=== PATIENT | male | born 1975 | race Caucasian/White ===

== ENCOUNTER 2016-05-18 10:23 | Emergency (ER) | payer OTHER ==
--- NOTE | 2016-05-18 11:43 | DIAGNOSTIC IMAGING REPORT ---
PROCEDURE: XR ANKLE 3 OR 4 VIEWS - RIGHT INDICATION: TRAUMA/INJURY TECHNIQUE: Four views. COMPARISON: Right ankle films 10/12/2008 FINDINGS: New lateral malleolar fracture. There is minimal displacement. The ankle mortise remains anatomic. IMPRESSION: 1. New lateral malleolar fracture.
--- NOTE | 2016-05-18 11:58 | DIAGNOSTIC IMAGING REPORT ---
PROCEDURE: XR ANKLE 1 OR 2 VIEWS - RIGHT INDICATION: TRAUMA/INJURY TECHNIQUE: Two views. With gravity COMPARISON: Right ankle films 10:00 a.m. FINDINGS: Slight lateral displacement of the distal lateral malleolar fragment under stress. IMPRESSION: 1. Slight lateral displacement of the distal lateral malleolar fragment under stress.
--- NOTE | 2016-05-18 13:26 | ED NURSING NOTES ---
Clinical Report - Nurses [facility] [address] [place] [address] 05/18/2016 10:29 Patient: PASQUALE COTTRELL TRIAGE Triage time 10:37. Acuity: LEVEL 4. Chief Complaint: INJURY TO RIGHT ANKLE. 10:38 05/18/16. 10:38 05/18/16. --10:40 Fam Boswell R.N. 10:37 05/18/16. BP: 155/88. HR: 82. RR: 14. O2 saturation: 100%. Temp: 98.2 F (oral). --10:40 Fam Boswell R.N. Weight: 68 kg stated. Height/Length: 66 inches Per Patient. BMI: 24.2. --10:38 Fam Boswell R.N. Medications None. --10:39 Fam Boswell R.N. Medication/allergy information source: the patient. --10:40 Fam Boswell R.N. Allergies NKDA. --10:39 Fam Boswell R.N. History Arrived by private vehicle. 10:38 05/18/16. This occurred (Tuesday). Mechanism of injury: sustained a twisting injury. Treatment UNIONMELT OPERATOR: None. PAST MEDICAL HX: Tetanus status: up-to-date. Immunizations not up to date. SOCIAL HX: Current every day heavy tobacco smoker (cigarette)- less than 1 pack per day. Alcohol use; consumes beer daily. History of heavy drug use: marijuana. Recently used drugs yesterday. No infectious disease exposure. FALL RISK ASSESSMENT: Fall risk assessment completed. No fall risk identified. NUTRITIONAL RISK ASSESSMENT: The nutritional risk assessment revealed no deficiencies. FUNCTIONAL ASSESSMENT: Functional assessment: no impairments noted. LEARNING NEEDS ASSESSMENT: The learning needs assessment revealed no barriers. SKIN INTEGRITY ASSESSMENT: Skin integrity risk assessment completed. No skin integrity risk identified. --10:40 Fam Boswell R.N. PROBLEMS: no known problems. ADDITIONAL SURGERIES: Right ankle surgery. --10:40 Fam Boswell R.N. Assessment 10:38 05/18/16. --10:40 Fam Boswell R.N. Interventions 10:38 05/18/16. 10:38 05/18/16. ID and allergy band on patient. To treatment room. --10:40 Fam Boswell R.N. PHYSICAL ASSESSMENT 10:41 05/18/16. GENERAL / NEURO / PSYCH: Oriented X 4. Alert. EXTREMITIES: Extremity pulses are not within normal limits. Capillary refill is less than 2 seconds in the extremities. Neuro-vascular status intact to the extremity. Right ankle: tenderness, swelling, erythema and ecchymosis. SKIN: Skin is warm and dry. --10:41 Fam Boswell R.N. NURSING PROGRESS NOTES 10:41 05/18/16. The plan of care for this patient has been created. Cold pack applied. Patient gowned. Two patient identifiers checked. Call light placed in reach. Side rails up x 2. Bed placed in lowest position. Brakes of bed on. Brakes of chair on. --10:41 Fam Boswell R.N. 10:41 05/18/16. Patient ready for evaluation- chart flagged and notification provided. --10:41 Fam Boswell R.N. 10:56 05/18/16. ( X-ray completed at bedside). --10:56 Fam Boswell R.N. 11:14 05/18/16. ( MD at bedside). --11:14 Fam Boswell R.N. 11:33 05/18/16. --11:33 Fam Boswell R.N. 11:32 05/18/16. BP: 144/78. HR: 76. RR: 12. O2 saturation: 100% on room air. --11:33 Fam Boswell R.N. Stirrup posterior fiberglass lower extremity splint applied to left leg by tech. Distal pulses intact, sensation intact and motor within normal limits. --12:28 Lidia Stokes ( pt. states he has his own crutches at home. Does not want new ones.). --12:30 Lindsey Curry ER Tech1. DISPOSITION / DISCHARGE 13:39 05/18/16. Condition at departure: improved. The goals identified in the patient's plan of care were met. No learning barriers present. Discharge instructions provided and reviewed with the patient. Reviewed warnings. Reviewed medication(s). Treatments reviewed. Reviewed referral to an orthopedic surgeon. Patient verbalized understanding. Written instructions provided in Kosovan. The patient was discharged by the physician. He was discharged home and accompanied by family. He left the Emergency Department ambulatory and via private vehicle. Family member driving. FALL RISK ASSESSMENT: Fall risk assessment completed. No fall risk identified. --13:40 Fam Boswell R.N. 13:39 05/18/16. BP: 112/72. HR: 80. RR: 12. O2 saturation: 99% on room air. Temp: 98.2 F (oral). --13:40 Fam Boswell R.N. 13:40 05/18/16. Departure time: 13:40. --13:40 Fam Boswell R.N. Locked/Released at 05/18/2016 13:46 by Fam Boswell R.N.
--- NOTE | 2016-05-18 13:26 | ED CLINICAL REPORT ---
Clinical Report - Physicians/Mid Levels [facility] [address] [place] [address] 05/18/2016 10:29 Patient: PASQUALE COTTRELL Time Seen: 10:48. Arrived- By private vehicle. Historian- patient. HISTORY OF PRESENT ILLNESS Chief Complaint: Injury to the right ankle. The injury happened several days ago. The patient sustained a twisting injury. Patient is experiencing moderate pain. REVIEW OF SYSTEMS The patient complains of pain on weight bearing. He has had swelling. No tingling, numbness, skin laceration, chills or fever. No sweats, calf pain, chest pain, cough or difficulty breathing. No palpitations, abdominal pain, constipation, diarrhea or nausea. No vomiting or urinary problems. All systems otherwise negative, except as recorded above. SOCIAL HISTORY Current every day heavy tobacco smoker (cigarette)- less than 1 pack per day. Alcohol use; consumes beer daily. History of occasional drug use: marijuana. FAMILY HISTORY No significant family medical history. ADDITIONAL NOTES The nursing notes have been reviewed. PHYSICAL EXAM Vital Signs: 05/18/2016 10:37 BP: 155/88. HR: 82. RR: 14. O2 saturation: 100%. Temp: 98.2 F. Have been reviewed. Appearance: Alert. Head: Head atraumatic. Eyes: Pupils equal, round and reactive to light. ENT: Pharynx normal. Neck: Normal inspection. Neck supple. CVS: Normal heart rate and rhythm. Heart sounds normal. Respiratory: No respiratory distress. Breath sounds normal. Abdomen: No visible injury. Soft and nontender. Bowel sounds normal. No organomegaly. No mass. Back: Normal inspection. No tenderness. ROM normal. No vertebral point tenderness. Skin: Skin intact. Skin warm and dry. Extremities: Right ankle. Gait: Gait not tested due to pain. Neuro, Vascular and Tendons: Vascular status intact. Sensation intact. Neuro: No motor deficit. No sensory deficit. LABS, X-RAYS, AND EKG Rt Ankle X-ray: (IMPRESSION: 1. New lateral malleolar fracture.). Post procedure films: (1. Slight lateral displacement of the distal lateral malleolar fragment under stress.). PROGRESS AND PROCEDURES Splint Application: Posterior stirrup fiberglass splint applied to right ankle. Splint applied by tech. Reassessed extremity following splint application. Neurovascular intact. Consult obtained from orthopedics. Dr. De León. Case discussed. Phone consult only. Will see patient in the office. Patient/family counseled. Old medical records ordered. Disposition: Discharged. Condition: stable. CLINICAL IMPRESSION Fracture of the lateral malleolus of the right fibula. INSTRUCTIONS Apply ice for 20 minutes four times a day until released. Don't apply ice directly to skin and don't use while asleep. Use crutches until released. Wear fiberglass splint until released. Elevate affected areas above chest level. No driving or operating machinery. No weight bearing. Warnings: COMPLICATIONS: Complications from this condition include: possible injury to a nerve, possible injury to a tendon and possible injury to a ligament. Future problems may include loss of function, pain, deformity and poor fracture healing. It is important to follow up with a physician for further evaluation and treatment. GENERAL WARNINGS: Return or contact your physician immediately if your condition worsens or changes unexpectedly, if not improving as expected, or if other problems arise. Prescription Medications: Hydrocodone/APAP 5mg/325mg: take 1 to 2 orally every 6 hours as needed for pain. Dispense fifteen (15). No refills. Understanding of the discharge instructions verbalized by patient. Follow-up with: Chris Pulido M.D., Orthopedic Surgeon, , [facility] [address] [address] Follow up in three days. Call for the next available appointment. (Electronically signed by Sam Acevedo MD 05/28/2016 17:07)
--- NOTE | 2016-05-18 13:26 | ED CLINICAL REPORT ---
Clinical Report - Physicians/Mid Levels [facility] [address] [address] 05/18/2016 10:29 Patient: PASQUALE COTTRELL Time Seen: 10:48. Arrived- By private vehicle. Historian- patient. HISTORY OF PRESENT ILLNESS Chief Complaint: Injury to the right ankle. The injury happened several days ago. The patient sustained a twisting injury. Patient is experiencing moderate pain. REVIEW OF SYSTEMS The patient complains of pain on weight bearing. He has had swelling. No tingling, numbness, skin laceration, chills or fever. No sweats, calf pain, chest pain, cough or difficulty breathing. No palpitations, abdominal pain, constipation, diarrhea or nausea. No vomiting or urinary problems. All systems otherwise negative, except as recorded above. SOCIAL HISTORY Current every day heavy tobacco smoker (cigarette)- less than 1 pack per day. Alcohol use; consumes beer daily. History of occasional drug use: marijuana. FAMILY HISTORY No significant family medical history. ADDITIONAL NOTES The nursing notes have been reviewed. PHYSICAL EXAM Vital Signs: 05/18/2016 10:37 BP: 155/88. HR: 82. RR: 14. O2 saturation: 100%. Temp: 98.2 F. Have been reviewed. Appearance: Alert. Head: Head atraumatic. Eyes: Pupils equal, round and reactive to light. ENT: Pharynx normal. Neck: Normal inspection. Neck supple. CVS: Normal heart rate and rhythm. Heart sounds normal. Respiratory: No respiratory distress. Breath sounds normal. Abdomen: No visible injury. Soft and nontender. Bowel sounds normal. No organomegaly. No mass. Back: Normal inspection. No tenderness. ROM normal. No vertebral point tenderness. Skin: Skin intact. Skin warm and dry. Extremities: Right ankle. Gait: Gait not tested due to pain. Neuro, Vascular and Tendons: Vascular status intact. Sensation intact. Neuro: No motor deficit. No sensory deficit. LABS, X-RAYS, AND EKG Rt Ankle X-ray: (IMPRESSION: 1. New lateral malleolar fracture.). Post procedure films: (1. Slight lateral displacement of the distal lateral malleolar fragment under stress.). PROGRESS AND PROCEDURES Splint Application: Posterior stirrup fiberglass splint applied to right ankle. Splint applied by tech. Reassessed extremity following splint application. Neurovascular intact. Consult obtained from orthopedics. Dr. De León. Case discussed. Phone consult only. Will see patient in the office. Patient/family counseled. Old medical records ordered. Disposition: Discharged. Condition: stable. CLINICAL IMPRESSION Fracture of the lateral malleolus of the right fibula. INSTRUCTIONS Apply ice for 20 minutes four times a day until released. Don't apply ice directly to skin and don't use while asleep. Use crutches until released. Wear fiberglass splint until released. Elevate affected areas above chest level. No driving or operating machinery. No weight bearing. Warnings: COMPLICATIONS: Complications from this condition include: possible injury to a nerve, possible injury to a tendon and possible injury to a ligament. Future problems may include loss of function, pain, deformity and poor fracture healing. It is important to follow up with a physician for further evaluation and treatment. GENERAL WARNINGS: Return or contact your physician immediately if your condition worsens or changes unexpectedly, if not improving as expected, or if other problems arise. Prescription Medications: Hydrocodone/APAP 5mg/325mg: take 1 to 2 orally every 6 hours as needed for pain. Dispense fifteen (15). No refills. Understanding of the discharge instructions verbalized by patient. Follow-up with: Chris Pulido M.D., Orthopedic Surgeon, , [facility] [address] [address] Follow up in three days. Call for the next available appointment. (Electronically signed by Sam Acevedo MD 05/28/2016 17:07)
--- NOTE | 2016-05-18 13:26 | ED ORDER SUMMARY ---
..... Patient: PASQUALE COTTRELL OrderSheet [facility] VisitID: [id number] [place] [address] 41y, M Registration Date/Time: 05/18/2016 ORDER SHEET Weight: 68.0 kg (stated) Allergies: NKDA GENERAL ORDERS: Ankle 3 or 4V Right Urgent (10:41 05/18/2016 Juan David R.N. per protocol) (Ack 10:43 Aldo) (10:56 Juan David R.N.) Ankle 2V Right (gravity stress test) Urgent (11:21 05/18/2016 Petr GUADARRAMA) (Ack 11:34 Aldo) (11:50 NHouse ER Tech1) Splint (LE) (Right) (Long Leg Posterior, Sugar Tong) (Fiberglass) (11:48 05/18/2016 Petr GUADARRAMA) (Ack 11:56 NHouse ER Tech1) (12:14 NHouse ER Tech1) Crutches (11:49 05/18/2016 Petr GUADARRAMA) (Ack 11:56 NHouse ER Tech1) (12:14 NHouse ER Tech1) (Cancelled: Patient [id number] NHouse ER Tech1) MEDICATION ORDERS: IV FLUIDS: ORDER SHEET NOTES: [Electronically signed by Fam Boswell R.N. (13:46 05/18/2016)] [Electronically signed by Sam Acevedo MD (17:07 05/28/2016)] [Electronically locked/signed by Fam Boswell R.N. (13:46 05/18/2016)]
--- NOTE | 2016-05-18 13:26 | ED ORDER SUMMARY ---
..... Patient: PASQUALE COTTRELL OrderSheet [facility] VisitID: [id number] [place] [address] 41y, M Registration Date/Time: 05/18/2016 ORDER SHEET Weight: 68.0 kg (stated) Allergies: NKDA GENERAL ORDERS: Ankle 3 or 4V Right Urgent (10:41 05/18/2016 Juan David R.N. per protocol) (Ack 10:43 Aldo) (10:56 Juan David R.N.) Ankle 2V Right (gravity stress test) Urgent (11:21 05/18/2016 Petr GUADARRAMA) (Ack 11:34 Aldo) (11:50 NHouse ER Tech1) Splint (LE) (Right) (Long Leg Posterior, Sugar Tong) (Fiberglass) (11:48 05/18/2016 Petr GUADARRAMA) (Ack 11:56 NHouse ER Tech1) (12:14 NHouse ER Tech1) Crutches (11:49 05/18/2016 Petr GUADARRAMA) (Ack 11:56 NHouse ER Tech1) (12:14 NHouse ER Tech1) (Cancelled: Patient [id number] NHouse ER Tech1) MEDICATION ORDERS: IV FLUIDS: ORDER SHEET NOTES: [Electronically signed by Fam Boswell R.N. (13:46 05/18/2016)] [Electronically signed by Sam Acevedo MD (17:07 05/28/2016)] [Electronically locked/signed by Fam Boswell R.N. (13:46 05/18/2016)]
--- NOTE | 2016-05-28 17:07 | ED MAR SUMMARY ---
..... Medication Administration Record [facility] [address], [place] [id number] Patient: PASQUALE COTTRELL Chio Visit ID: [id number] 41y, M Weight: 68.0 kg Height/Length: 66 in BMI: 24.2 ALLERGIES: NKDA
--- NOTE | 2016-05-28 17:07 | ED DISCHARGE INSTRUCTIONS ---
Patient: PASQUALE COTTRELL General Instructions [facility] VisitID: [id number] [address] [place] [address] 41y, M Registration Date/Time: 05/18/2016 Fracture of the lateral malleolus of the right fibula. INSTRUCTIONS Apply ice for 20 minutes four times a day until released. Don't apply ice directly to skin and don't use while asleep. Use crutches until released. Wear fiberglass splint until released. Elevate affected areas above chest level. No driving or operating machinery. No weight bearing. Warnings: COMPLICATIONS: Complications from this condition include: possible injury to a nerve, possible injury to a tendon and possible injury to a ligament. Future problems may include loss of function, pain, deformity and poor fracture healing. It is important to follow up with a physician for further evaluation and treatment. GENERAL WARNINGS: Return or contact your physician immediately if your condition worsens or changes unexpectedly, if not improving as expected, or if other problems arise. Prescription Medications: Hydrocodone/APAP 5mg/325mg: take 1 to 2 orally every 6 hours as needed for pain. Dispense fifteen (15). No refills. Understanding of the discharge instructions verbalized by patient. Follow-up with: Chris Pulido M.D., Orthopedic Surgeon, , [address] [place] [address] Follow up in three days. Call for the next available appointment. ADDITIONAL INFORMATION Fracture,Ankle, Distal Fibula You have a fracture (broken bone) of the end of the fibula bone. This is one of two bones that support the ankle joint. Home Care: You will be given a splint, cast or special boot to prevent movement at the site of injury. Do not put weight on a splint; it will break. Follow your doctor's advice regarding when to begin bearing weight on a cast or boot. Keep your leg elevated when sitting or lying down. When sleeping, place a pillow under the injured leg. When sitting, support the injured leg so it is level with your waist. This is very important during the first 48 hours. Keep the cast/splint completely dry at all times. When bathing, protect the cast/splint with a large plastic bag, rubber-banded at the top end. If a fiberglass cast or splint gets wet, you can dry it with a hair-dryer. Place an ice pack (ice cubes in a plastic bag, wrapped in a towel) on the splint/cast over the injured area for 20 minutes every 2 hours during the first day.You can place the ice pack directly over the splint/cast. Continue this 3-4 times a day for the next two days. You may use acetaminophen (Tylenol) or ibuprofen (Motrin, Advil) to control pain, unless another pain medicine was prescribed. [NOTE: If you have chronic liver or kidney disease or ever had a stomach ulcer or GI bleeding, talk with your doctor before using these medicines.] Follow Up with your doctor in one week, or as advised by our staff, to be sure the bone is healing properly. If you were given a splint, it may be changed to a cast after the swelling goes down. [NOTE: A radiologist will review any X-rays that were taken. We will notify you of any new findings that may affect your care.] Get Prompt Medical Attention if any of the following occur: The plaster cast or splint becomes wet or soft The fiberglass cast or splint remains wet for more than 24 hours Increased tightness or pain under the cast or splint Toes become swollen, cold, blue, numb or tingly Crutch Walking Crutch Adjustment Make sure the crutches you use are adjusted to fit you. When you stand, there should be room to fit 2-3 fingers between the top of the crutch and your armpit. Your elbow should be slightly bent when holding the hand liquor department manager. Crutch Walking: Place the crutches forward 12" in front of and 6" to the side of your feet. Lean your weight forward as you push down on the handgrips. Your weight should be on your hands and yourstrong leg, not your armpits . Let your body swing through, landing on the strong leg. Advance the crutches forward again. The crutch and the injured leg should move together. Going Up Steps: ("Up with the good") With both crutches on the same step as your feet, push down on the handgrips. Balancing with very light pressure on the weak leg, let your hands support your weight as you raise your strong leg onto the next higher step. Transfer all your weight to your strong leg (still bent) as you move the crutches up to the next step alongside the strong leg. With your weight evenly balanced on the two crutches and your strong leg, straighten your strong knee as you raise the weak leg up to the next step. Going Down Steps: ("Down with the bad") With both crutches on the same step as your feet, push down on the handgrips. With your weight evenly balanced on the two crutches and your strong leg, bend your strong knee as you lower the weak leg down to the next step. Let your strong leg support you (still bent) as you move the crutches down alongside the weak leg. Transfer your weight to your hands, balancing with very light pressure on the weak leg as you lower your strong leg alongside your weak leg. Splint Care, Fiberglass The following will help you care for your splint: It will take up totwo hours for your fiber glass splint to fully harden; therefore, do notapply any pressure on it during that time or else it may break. To prevent swelling under the splint, for thefirst 48 hours: If the splint is on yourarm, keep it in a sling or raised to shoulder level when sitting or standing; rest it on your chest or on a pillow at your side when lying down. If the splint is on yourfoot, keep it propped up above the level of your waist when sitting or lying. Avoid crutch walking as much as possible during this time. Keep the splint/cast dry at all times. Bathe with your splint/cast well out of the water, protected with a large plastic bag, rubber-banded at the top end. If a fiberglass cast or splint gets wet, you can dry it with a hair-dryer. Follow-up care Follow up with your doctor or this facility as advised. When to seek medical care Get prompt medical attention if any of the following occur: Bad odor from the splint or wound-fluid stains the splint The splint cracks or remains wet over 24 hours Increasing tightness or pressure under the splint Fingers or toes become swollen, cold, blue, numb or tingly Increased pain under the splint Hydrocodone Bitartrate, Acetaminophen Oral tablet What is this medicine? ACETAMINOPHEN; HYDROCODONE (a set a VINCENT lola fen; amilcar droe KOE done) is a pain reliever. It is used to treat mild to moderate pain. How should I use this medicine? Take this medicine by mouth. Swallow it with a full glass of water. Follow the directions on the prescription label. If the medicine upsets your stomach, take the medicine with food or milk. Do not take more than you are told to take. Talk to your wood heel flap trimmer regarding the use of this medicine in children. This medicine is not approved for use in children. What side effects may I notice from receiving this medicine? Side effects that you should report to your doctor or health healthcare insurance sales agent as soon as possible: allergic reactions like skin rash, itching or hives, swelling of the face, lips, or tongue breathing problems confusion feeling faint or lightheaded, falls stomach pain yellowing of the eyes or skin Side effects that usually do not require medical attention (report to your doctor or health healthcare insurance sales agent if they continue or are bothersome): nausea, vomiting stomach upset What may interact with this medicine? alcohol antihistamines isoniazid medicines for depression, anxiety, or psychotic disturbances medicines for sleep muscle relaxants naltrexone narcotic medicines (opiates) for pain phenobarbital ritonavir tramadol What if I miss a dose? If you miss a dose, take it as soon as you can. If it is almost time for your next dose, take only that dose. Do not take double or extra doses. Where should I keep my medicine? Keep out of the reach of children. This medicine can be abused. Keep your medicine in a safe place to protect it from theft. Do not share this medicine with anyone. Selling or giving away this medicine is dangerous and against the law. Store at room temperature between 15 and 30 degrees C (59 and 86 degrees F). Protect from light. Keep container tightly closed. Throw away any unused medicine after the expiration date. Discard unused medicine and used packaging carefully. Pets and children can be harmed if they find used or lost packages. What should I tell my health care provider before I take this medicine? They need to know if you have any of these conditions: brain tumor Crohn's disease, inflammatory bowel disease, or ulcerative colitis drink more than 3 alcohol-containing drinks per day drug abuse or addiction head injury heart or circulation problems kidney disease or problems going to the bathroom liver disease lung disease, asthma, or breathing problems an unusual or allergic reaction to acetaminophen, hydrocodone, other opioid analgesics, other medicines, foods, dyes, or preservatives or trying to get breast-feeding What should I watch for while using this medicine? Tell your doctor or health healthcare insurance sales agent if your pain does not go away, if it gets worse, or if you have new or a different type of pain. You may develop tolerance to the medicine. Tolerance means that you will need a higher dose of the medicine for pain relief. Tolerance is normal and is expected if you take the medicine for a long time. Do not suddenly stop taking your medicine because you may develop a severe reaction. Your body becomes used to the medicine. This does NOT mean you are addicted. Addiction is a behavior related to getting and using a drug for a non-medical reason. If you have pain, you have a medical reason to take pain medicine. Your doctor will tell you how much medicine to take. If your doctor wants you to stop the medicine, the dose will be slowly lowered over time to avoid any side effects. You may get drowsy or dizzy when you first start taking the medicine or change doses. Do not drive, use machinery, or do anything that may be dangerous until you know how the medicine affects you. Stand or sit up slowly. There are different types of narcotic medicines (opiates) for pain. If you take more than one type at the same time, you may have more side effects. Give your health care provider a list of all medicines you use. Your doctor will tell you how much medicine to take. Do not take more medicine than directed. Call emergency for help if you have problems breathing. The medicine will cause constipation. Try to have a bowel movement at least every 2 to 3 days. If you do not have a bowel movement for 3 days, call your doctor or health healthcare insurance sales agent. Too much acetaminophen can be very dangerous. Do not take Tylenol (acetaminophen) or medicines that contain acetaminophen with this medicine. Many non-prescription medicines contain acetaminophen. Always read the labels carefully. You have been given the following additional information: Ankle Fracture (Distal Fibula), Closed Crutch Walking Splint Care, Fiberglass Hydrocodone Bitartrate, Acetaminophen Oral tablet No driving or operating machinery. No weight bearing. (Electronically signed by Sam Acevedo MD 05/28/2016 17:07)
--- NOTE | 2016-05-28 17:07 | ED MAR SUMMARY ---
..... Medication Administration Record [facility] [address], [place] [id number] Patient: PASQUALE COTTRELL [place] Visit ID: [id number] 41y, M Weight: 68.0 kg Height/Length: 66 in BMI: 24.2 ALLERGIES: NKDA
--- NOTE | 2016-05-28 17:07 | ED MED RECONCILIATION SUMMARY ---
Patient: PASQUALE COTTRELL Medication Reconciliation Report [facility] VisitID: [id number] [address] [place] [address] 41y, M Registration Date/Time: 05/18/2016 Weight: 68.0 kg Height/Length: 66 in. BMI: 24.2 ALLERGIES: NKDA The patient's Home Medications are listed below: NONE. The source(s) of the original Home Medication information: patient The following Medications were given to the patient in the Emergency Department: None. The following Medications were prescribed to the patient: Hydrocodone/APAP 5mg/325mg: take 1 to 2 orally every 6 hours as needed for pain. Dispense fifteen (15). No refills. -- Sam Acevedo MD
--- NOTE | 2016-05-28 17:07 | ED MED RECONCILIATION SUMMARY ---
Patient: PASQUALE COTTRELL Medication Reconciliation Report [facility] VisitID: [id number] [address] [place] [address] 41y, M Registration Date/Time: 05/18/2016 Weight: 68.0 kg Height/Length: 66 in. BMI: 24.2 ALLERGIES: NKDA The patient's Home Medications are listed below: NONE. The source(s) of the original Home Medication information: patient The following Medications were given to the patient in the Emergency Department: None. The following Medications were prescribed to the patient: Hydrocodone/APAP 5mg/325mg: take 1 to 2 orally every 6 hours as needed for pain. Dispense fifteen (15). No refills. -- Sam Acevedo MD
== END 2016-05-18 13:40 | disposition home or self-care (01) ==
LOC: ED SRH 10:23
DX: S82.61XA Displaced fracture of lateral malleolus of right fibula, initial encounter for closed fracture (principal); X50.1XXA Overexertion from prolonged static or awkward postures, initial encounter; Y93.9 Activity, unspecified; Y92.9 Unspecified place or not applicable; Y99.9 Unspecified external cause status; F17.210 Nicotine dependence, cigarettes, uncomplicated